=== PATIENT | female | born 1945 | race Caucasian/White ===

== ENCOUNTER 2016-12-12 14:23 | Emergency (ER) | payer OTHER ==
[~2016-12-12] VITALS: Ht 160 cm; Wt 60.3 kg
--- NOTE | ~2016-12-12 | CT71 ---
[facility] A Service of [facility] RADIOLOGY TEXT RESULTS PATIENT: KENNEDY GARCIA LOCATION: [facility] : 43 UNIT #: [id number] AGE: [address]: Carl Junior MD SEX: F ORDER DR: [id number] [place], [place] [address] [id number] E MR#: [id number] Acc #: [id number] NAME: KENNEDY GARCIA : 1945 SEX: F STUDY DATE/TIME: 12/12/2016 16:35 UNIT: [facility] ROOM: STUDY DESCRIPTION: CT Head Wo Contrast Attending Physician: Carl Junior M.D. Ordering Physician: Carl Junior M.D. Primary Care Physician: Sara Rodriguez Aprn MEDICAL IMAGING REPORT This report is preliminary unless electronic signature is present EXAM Head CT no contrast 12/12/2016 INDICATIONS A 71-year-old female with left sided paresthesias and weakness, that has since resolved onset of symptoms 4 hours ago. Focal neurologic deficit. TECHNIQUE Noncontrast CT brain was performed. There are no comparisons. This CT exam was performed with one or more of the following radiation dose reduction techniques: automatic exposure control, adjustment of mA and/or kV according to patient size, and iterative reconstruction. FINDINGS Sulci and ventricles unremarkable. No midline shift. No evidence of acute intracranial hemorrhage. There is no mass, mass effect or edema to suggest acute infarct and no extraaxial fluid collections identified. Globes are intact. Bones are intact. Sinuses clear. IMPRESSION Negative noncontrast CT brain. Dictated by... Eamon Fan M.D. THIS IS AN ELECTRONICALLY VERIFIED REPORT Eamon Fan M.D. at 12/12/2016 11:16 PM Santi TD: 12/12/2016 19:52 JOB #: [id number] [facility] A Service of [facility] RADIOLOGY TEXT RESULTS PATIENT: KENNEDY GARCIA LOCATION: [facility] #: [id number] : 43 UNIT #: [id number] AGE: [address]: Carl Junior MD SEX: F ORDER DR: MEDICAL IMAGING REPORT Page 1 of 1 COPY
--- NOTE | ~2016-12-12 | EKG ---
PATIENT: KENNEDY GARCIA UNIT #: [id number] Ventricular Rate: 69 BPM Atrial Rate: 69 BPM P-R Interval: 218 ms QRS Duration: 88 ms Q-T Interval: 408 ms QTC Calculation(Bezet): 437 ms P [place]: 68 degrees Calculated R [place]: -25 degrees Calculated T [place]: 21 degrees Diagnosis Line: Sinus rhythm with 1st degree A-V block with Diagnosis Line: occasional Premature ventricular complexes Diagnosis Line: Low voltage QRS Diagnosis Line: Cannot rule out Septal infarct , age undetermined Diagnosis Line: Abnormal ECG Diagnosis Line: No previous ECGs available Diagnosis Line: Confirmed by EDWARD GREGORY MD ([id number]) on 12/13/2016 Diagnosis Line: 2:03:05 PM INTERPRETING MD: COLT BUTLER
[~2016-12-12 14:23] MED LIST: FLEXERIL10 MG PO; KRILL OIL500 MG PO; VITAMIN D1000 UNIT PO
[2016-12-12 15:36] LABS: POC - CKMB 2.9 ng/mL (0.0-7.9); POC - TROPONIN <0.05 ng/mL (<=0.05)
[2016-12-12 15:37] LABS: BASOPHIL# 0.1 X10e3 (0-0.3); BASOPHIL% 0.9 % (0-2.5); EOSINOPHIL# 0.1 X10e3 (0-0.7); EOSINOPHIL% 2.1 % (0.0-7.0); HEMATOCRIT 41.1 % (35.0-45.0); HEMOGLOBIN 13.9 gm/dL (12.0-16.0); LYMPHOCYTE# 1.4 X10e3 (1.0-3.5); LYMPHOCYTE% 22.1 % (17.0-45.0); MEAN CELL VOLUME 91.5 FL (83-96); MEAN CORPUSCULAR HGB CONC 33.9 g/dL (30-36); MEAN PLATELET VOLUME 8.1 FL (6.5-11.5); MONOCYTE# 0.5 X10e3 (0-1.0); NEUTROPHIL# 4.4 X10e3 (1.5-7.1); NEUTROPHIL% 67.9 % (40-75); PLATELET COUNT 239 X10e3 (140-420); RED BLOOD COUNT 4.49 X10e (3.90-5.30); RED CELL DISTRIBUTION WIDTH 13.6 % (11.0-15.5); WHITE BLOOD COUNT 6.5 X10e3 (4.0-10.5)
[2016-12-12 15:39] LABS: DIFF IND NO
[2016-12-12 15:51] LABS: PARTIAL THROMBOPLASTIN TIME 23.6 SECONDS (23.5-31.3); PROTHROMBIN TIME (PATIENT) 10.7 SECONDS (10.0-11.7)
[2016-12-12 16:00] LABS: ALBUMIN SERUM 3.9 g/dL (3.5-5.0); BILIRUBIN, DIRECT 0.1 mg/dL (0.0-0.2); BILIRUBIN,INDIRECT 0.3 mg/dL (0.0-0.9); BILIRUBIN,TOTAL 0.4 mg/dL (0.2-2.0); CALCIUM SERUM 8.9 mg/dL (8.4-10.2); CREATININE SERUM 0.8 mg/dL (0.6-1.4); GLOM FILT RATE Estimated 73.7 mL/min (>60); POTASSIUM 3.8 mmol/L (3.5-5.1); PROTEIN TOTAL SERUM 6.6 g/dL (6.0-8.3)
== END 2016-12-12 18:00 | disposition left against medical advice (07) ==
LOC: CED 14:23
PROVIDERS: Emergency Medicine
DX: G45.9 Transient cerebral ischemic attack, unspecified (principal); R20.2 Paresthesia of skin; E11.9 Type 2 diabetes mellitus without complications; F17.210 Nicotine dependence, cigarettes, uncomplicated; Z90.710 Acquired absence of both cervix and uterus
CPT/HCPCS: 36415; 70450; 80048; 80076; 82553; 82947; 84484; 85025; 85610; 85730; 93005; 99284